=== PATIENT | female | born 1925 | race Caucasian/White ===

== ENCOUNTER 2016-04-28 15:17 | Inpatient (IN) | payer OTHER ==
[2016-04-28 16:01] LABS: MANUAL DIFF NEEDED? NO
[2016-04-28 16:05] LABS: BASO% 0.4 % (0.0-0.8); EOS# 0.17 X1000 (0.0-0.7); EOS% 3.4 % (0.0-10.0); HEMATOCRIT 32.8 % (37.0-47.0); HEMOGLOBIN 10.4 g/dL (12.0-16.0); LYMPH# 1.06 X1000 (1.2-3.4); LYMPH% 21.5 % (20.5-51.1); MCHC 31.7 g/dL (33-37); MCV 94.5 FL (81-99); MONO# 0.31 X1000 (0.11-0.59); MONO% 6.3 % (1.7-9.3); MPV 11.2 FL (7.4-10.4); NEUT% 68.4 % (42.2-75.2); PLT 139 X1000 (130-400); RBC 3.47 XMIL (4.2-5.4)
[2016-04-28 16:24] LABS: ALBUMIN 4.1 g/dL (3.5-5.0); CALCIUM 9.3 mg/dL (8.8-10.2); TOTAL BILIRUBIN 0.51 mg/dL (0.20-1.00)
[2016-04-28 17:24] LABS: URINE CULTURE NEEDED? NO; URINE MICRO REVIEW NEEDED? NO; URINE SOURCE CLEAN CATCH
[2016-04-28 17:27] LABS: BILIRUBIN URINE NEGATIVE (NEGATIVE); BLOOD URINE NEGATIVE (NEGATIVE); COLOR STRAW; GLUCOSE URINE NEGATIVE (NEGATIVE); LEUKOCYTES URINE NEGATIVE (NEGATIVE); NITRITE URINE NEGATIVE (NEGATIVE); PH URINE 7.5; PROTEIN URINE NEGATIVE (NEGATIVE); SP GRAVITY URINE 1.005; TURBIDITY URINE CLEAR (CLEAR); UROBILINOGEN URINE NORMAL (NORMAL)
[2016-04-28 17:29] LABS: UR EPITHELIAL CELLS <10 /HPF (<10); URINE BACTERIA NEGATIVE /HPF; URINE RBC <10 /HPF (<10); URINE WBC <10 /HPF (<10)
--- NOTE | 2016-04-28 17:36 | PROVIDER DOCUMENTATION ---
HPI-General Adult <Rhonda Hernandez - Last Filed: 04/28/16 18:23> <Pacheco Peterson - Last Filed: 04/28/16 18:41> - General Source: patient - History of Present Illness -Gen Adult Nature of Presenting Problems: 89 yo WF complains of several days of lower extremity weakness and pain. She is not able to walk except with walker before 'giving out.' Usually she is ambulatory. She admits to palpitations but does not volunteer that. She denies CP, orthopnea, fever. Location of Pain/Injury: reports: lower body Pain Radiation: reports: other (upper legs) Quality of Pain: reports: aching Severity: reports: mild Onset/Duration: reports: 4 days ago Timing: reports: still present, getting worse Context/Activities at Onset: reports: none Modifying Factors: improves with: nothing Associated Symptoms: reports: fatigue, muscle aches, nausea, shortness of breath , weakness. denies: constipation, cough, fever/chills, genitourinary problems Similar Symptoms Previously?: No Recently seen or treated by another doctor?: No <Jimmie Sparks - Last Filed: 05/01/16 10:31> - General Chief Complaint: Weakness Stated Complaint: WEAK/KNEE PAIN/BACK PAIN Time Seen by Provider: 04/28/16 16:30 Allergies/Adverse Reactions: Patient Allergies Allergy/AdvReac Type Severity Reaction Status Date / Time oxycodone HCl * AdvReac ANAPHYLAXIS Verified 09/13/15 14:17 [From OxyContin] Home Medications: Atorvastatin Calcium 40 mg PO HS 09/13/15 Cyanocobalamin (Vitamin B-12) [Vitamin B12] 1,000 mcg PO DAILY 09/13/15 Furosemide [Lasix] 20 mg PO DAILY 09/13/15 Lisinopril 30 mg PO DAILY 09/13/15 Meloxicam 15 mg PO DAILY 09/13/15 Omeprazole 40 mg PO DAILY 09/13/15 Sertraline [Zoloft] 100 mg PO DAILY 09/13/15 Warfarin [Coumadin] 2 mg PO DIRECTED 09/13/15 Fluticasone 50 Mcg Nasal [place] [Flonase] 2 spray SINDHU DAILY 04/28/16 Folic Acid 0.4 mg PO DAILY 04/28/16 Review of Systems - Adult - REVIEW OF SYSTEMS - ADULT Constitutional: reports: fatique Eyes: reports: no symptoms reported Ears, Nose, Mouth & Throat: reports: no symptoms reported Cardiovascular: reports: palpitations Respiratory: reports: dyspnea on exertion, shortness of breath. denies: chronic cough, wheezing Gastrointestinal: reports: no symptoms reported Genitourinary: reports: no symptoms reported Musculoskeletal: reports: no symptoms reported Psychiatric: reports: no symptoms reported <Jimmie Sparks - Last Filed: 05/01/16 10:31> Past History - Adult - PAST MEDICAL HISTORY-ADULT Review of Records: reports: Old Records Reviewed, Nursing Assessment Review, Medications Reviewed, Social history reviewed & non-contributory. Cardiovascular: reports: HTN, hyperlipidemia. denies: A-Fib Genitourinary: reports: denies history Musculoskeletal: reports: arthritis, other (chronic gout) Neurological: reports: denies history Psychiatric: reports: denies history - PRIOR SURGERIES/PROCEDURES Surgical/Procedure History: reports: joint replacement - IMMUNIZATION STATUS Childhood Immunizations: See Nurse Assessment Flu Vaccine: See Nurse Assessment - FAMILY HISTORY Family History: reviewed, not pertinent - SOCIAL HISTORY Smoking: denies Substance Use: none/never Alcohol Use Frequency: never <Jimmie Sparks - Last Filed: 05/01/16 10:31> Physical Exam-General - PHYSICAL EXAM-ADULT Initial Vital Signs Reviewed: Yes - CONSTITUTIONAL General Appearance: appears well, alert, no apparent distress, obese - EYES Eyes: PERRL/EOMI, pink conjunctivae - HEAD, EARS, NOSE, MOUTH & THROAT HENMT: normocephalic/atraumatic, moist mucous membranes - NECK Neck: non-tender, supple - RESPIRATORY Respiratory: chest non-tender, lungs clear, normal breath sounds - CARDIOVASCULAR Cardiovascular: irregularly irregular - GASTROINTESTINAL (ABDOMEN) Abdominal Exam: normal bowel sounds, non tender, soft - MUSCULOSKELETAL Back Exam: no CVA tenderness Extremity: deformity (knee joints), pedal edema - SKIN Integumentary: normal color - NEUROLOGIC Neurologic: grossly normal, no motor/sensory deficits - PSYCHIATRIC Psych/Mental Status: normal mood/affect <Jimmie Sparks - Last Filed: 05/01/16 10:31> Progress - EKG 1 Time of EKG reading by physician:: 18:23 EKG Read and Signed by:: Jimmie Sparks Rate: 75 Rhythm: sinus rhythm QRS: normal HI Interval: normal ST Wave: normal <Rhonda Hernandez - Last Filed: 04/28/16 18:23> - REASSESSMENT Reassessment #1 Time Reassessed: 18:41 (Took over care for Dr. Sparks (ER MD) who completed his shift. Pt has new onset a-fib, weakness, and profound htn. I have ordered a CT head and labetolol 20mg IV. Dr. Sparks agreed c admitting the pt for bp management and furgther evaluation of a-fib and weakness. ) - CONSULTS/PCP/HOSPITALIST Notification #1 *Consult/PCP/Hospitalist*: Dr. Rodgers (Hospitalist) Time Discussed: 18:47 Reason/Comments: Will admit pt and the machinist 2nd shift hospitalist team will see pt <Pacheco Peterson - Last Filed: 04/28/16 18:41> - PLAN OF CARE/RESULTS Progress/Plan/Lab Results: Vital Signs Temp Pulse Resp BP Pulse Ox 05/01/16 09:13 93 L 05/01/16 08:00 98.7 F 85 18 146/57 95 05/01/16 03:33 98.6 F 74 20 134/61 95 04/30/16 23:36 98.6 F 78 18 153/70 96 04/30/16 19:50 98.6 F 88 18 192/83 91 L 04/30/16 15:09 99.0 F 97 H 22 168/82 97 04/30/16 11:40 98.5 F 73 20 183/75 99 04/30/16 11:20 96 04/30/16 07:19 98.0 F 72 18 145/62 96 04/30/16 03:42 98.1 F 80 18 159/81 96 04/30/16 00:00 98.3 F 75 22 155/68 100 04/29/16 20:00 97.2 F L 66 18 180/70 100 04/29/16 15:25 97.5 F L 67 20 197/86 100 04/29/16 11:56 97.6 F 78 16 178/92 100 04/29/16 07:53 97.6 F 66 19 173/65 95 04/29/16 04:00 98.3 F 86 13 129/69 95 04/28/16 23:32 97.3 F L 79 14 180/86 95 04/28/16 20:56 66 197/87 04/28/16 20:37 98.1 F 64 17 201/91 97 04/28/16 19:50 68 19 190/100 96 04/28/16 18:51 70 17 253/118 96 04/28/16 18:32 212/110 04/28/16 18:07 76 19 224/96 96 04/28/16 15:36 98.2 F 71 18 180/106 100 oxycodone HCl * [From OxyContin] Adverse Reaction (Verified 09/13/15 14:17) ANAPHYLAXIS STATES ASYSTOLE Atorvastatin Calcium 40 mg PO HS 09/13/15 Cyanocobalamin (Vitamin B-12) [Vitamin B12] 1,000 mcg PO DAILY 09/13/15 Furosemide [Lasix] 20 mg PO DAILY 09/13/15 Lisinopril 30 mg PO DAILY 09/13/15 Meloxicam 15 mg PO DAILY 09/13/15 Omeprazole 40 mg PO DAILY 09/13/15 Sertraline [Zoloft] 100 mg PO DAILY 09/13/15 Warfarin [Coumadin] 2 mg PO DIRECTED 09/13/15 Fluticasone 50 Mcg Nasal [place] [Flonase] 2 spray SINDHU DAILY 04/28/16 Folic Acid 0.4 mg PO DAILY 04/28/16 Dietary Diet Heart Healthy Diet Start Sat Apr 28 2045 I&O 04/30/16 05/01/16 05/02/16 07:59 07:59 07:59 Intake Total 1214 1230 Output Total 0796 7284 Balance -1761 -420 Laboratory 05/01/16 05/01/16 04/30/16 05:55 05:55 04:30 WBC 4.88 4.60 L RBC 3.29 L 3.21 L Hgb 9.8 L 9.6 L Hct 30.8 L 30.1 L MCV 93.6 93.8 MCH 29.8 29.9 MCHC 31.8 L 31.9 L RDW Std Deviation 14.2 13.9 Plt Count 130 124 L MPV 11.2 H 11.7 H Immature Gran % (Auto) 0.0 0.0 Neut % (Auto) 63.9 70.6 Lymph % (Auto) 24.4 17.0 L [place] % (Auto) 8.2 8.5 Eos % (Auto) 3.3 3.7 Baso % (Auto) 0.2 0.2 Immature Gran # (Auto) 0.00 0.00 Neut # (Auto) 3.12 3.25 Lymph # (Auto) 1.19 L 0.78 L Blanco # (Auto) 0.40 0.39 Eos # (Auto) 0.16 0.17 Baso # (Auto) 0.01 0.01 Sodium 140 Potassium 4.1 Chloride 104 Carbon Dioxide 24 L Anion Gap 12 BUN 24 H Creatinine 1.4 H Estimated GFR/1.73 m2 35 BUN/Creatinine Ratio 17 Glucose 94 POC Glucose Calculated Osmolality 283 Calcium 9.4 Phosphorus 3.0 Magnesium 1.4 L Albumin 3.2 L 04/30/16 04/28/16 04:30 15:42 WBC RBC Hgb Hct MCV MCH MCHC RDW Std Deviation Plt Count MPV Immature Gran % (Auto) Neut % (Auto) Lymph % (Auto) Blanco % (Auto) Eos % (Auto) Baso % (Auto) Immature Gran # (Auto) Neut # (Auto) Lymph # (Auto) Blanco # (Auto) Eos # (Auto) Baso # (Auto) Sodium 142 Potassium 3.9 Chloride 105 Carbon Dioxide 25 Anion Gap 12 BUN 19 Creatinine 1.3 H Estimated GFR/1.73 m2 39 BUN/Creatinine Ratio 15 Glucose 95 POC Glucose 98 Calculated Osmolality 285 Calcium 9.4 Phosphorus Magnesium 1.3 L Albumin <Jimmie Sparks - Last Filed: 05/01/16 10:31> Departure <Rhonda Hernandez - Last Filed: 04/28/16 18:23> - Departure Time of Disposition Order: 18:43 Certified Medical Emergency: Emergent <Pacheco Peterson - Last Filed: 04/28/16 18:41> - Departure Time of Disposition Order: 18:00 <Jimmie Sparks - Last Filed: 05/01/16 10:31> - Departure DIAGNOSIS: Weakness Afib Qualifiers: Atrial fibrillation type: unspecified Qualified Code(s): I48.91 - Unspecified atrial fibrillation HTN (hypertension) Qualifiers: Hypertension type: essential hypertension Qualified Code(s): I10 - Essential ( primary) hypertension Disposition: ADMITTED INPATIENT 09 Condition: Stable Attestation - Physician/ Mid-level Attestation Patient care was provided by Mid-level provider (WEED INSPECTOR/PA):: Yes Mid-level provider:: Pacheco Peterson Mid-level documentation review:: The Mid-level provider documentation, treatment plan and medical decision making was reviewed by the physician who agrees with all treatment and medical decision making by the MLP. <Pacheco Peterson - Last Filed: 04/28/16 18:41> Physician Attestation
[2016-04-28] MEDS ORDERED: CATAPRES PO ONE (17:37)
[2016-04-28 18:08] LABS: INR 1.88; PROTIME 20.1 Seconds (9.2-11.7)
[2016-04-28] MEDS ORDERED: LABETALOL IV ONE (18:36)
[2016-04-28] MEDS ORDERED: LASIX IV ONE (20:52)
[2016-04-28] MEDS: NS IV SCH ×2 (20:54→21:34)
[2016-04-28] MEDS: CARDENE IV SCH ×2 (20:54→21:34)
[2016-04-28] MEDS ORDERED: COUMADIN PO SCH (21:00)
[2016-04-28] MEDS ORDERED: ZOFRAN IV PRN (21:03)
[2016-04-28 21:40] LABS: URINE CULTURE NEEDED? NO; URINE MICRO REVIEW NEEDED? NO; URINE SOURCE CLEAN CATCH
[2016-04-28] MEDS: LOVENOX SUBQ SCH (21:40)
[2016-04-28 21:43] LABS: BILIRUBIN URINE NEGATIVE (NEGATIVE); BLOOD URINE NEGATIVE (NEGATIVE); COLOR STRAW; GLUCOSE URINE NEGATIVE (NEGATIVE); LEUKOCYTES URINE NEGATIVE (NEGATIVE); NITRITE URINE NEGATIVE (NEGATIVE); PROTEIN URINE NEGATIVE (NEGATIVE); SP GRAVITY URINE 1.008; TURBIDITY URINE CLEAR (CLEAR); UROBILINOGEN URINE NORMAL (NORMAL)
[2016-04-28 21:44] LABS: UR EPITHELIAL CELLS <10 /HPF (<10); URINE BACTERIA NEGATIVE /HPF; URINE RBC <10 /HPF (<10); URINE WBC <10 /HPF (<10)
[2016-04-28] MEDS: LIPITOR PO SCH (22:34)
--- NOTE | 2016-04-28 23:18 | Diag Imaging Result Document ---
PROCEDURE NAME: HEAD W/O CONTRAST - 04/28/2016 CT HEAD WITHOUT CONTRAST: COMPARISON: None available. FINDINGS: There is diffuse brain atrophy and there is patchy low attenuation in the periventricular and subcortical white matter suggesting fairly advanced microangiopathy. 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 There is no definite acute infarct given the limited sensitivity of CT versus MRI. There is no discrete intracranial mass, mass effect, or intracranial hemorrhage. There is subtotal opacification of the left maxillary sinus with hyperostosis consistent with chronic sinusitis. Surrounding soft tissues and bony structures are essentially unremarkable, otherwise. IMPRESSION: Chronic appearing changes but no evidence of acute intracranial pathology.
[2016-04-29 05:19] LABS: MANUAL DIFF NEEDED? NO
--- NOTE | 2016-04-29 05:22 | HISTORY AND PHYSICAL ---
PRIMARY CARE PHYSICIAN: Wing Hardy MD. CHIEF COMPLAINT: Weakness. HISTORY OF PRESENT ILLNESS: This is an 89-year-old, female who comes in with her family with a complaint of lower extremity weakness. She states that she has not been able to walk without her walker for the past week without, in her own words, "giving out". She usually is ambulatory without a walker. She did also note that she had felt as though she had palpitations or a fluttering in her chest. She denied any chest pain, orthopnea, fever, nausea, vomiting, or shortness of breath. She has a past medical history of gout, hypertension, hyperlipidemia, lower leg DVT. She originally had an EKG that was completed in the ER that showed her in normal sinus rhythm. At some point during her time in the ER, she converted to atrial fibrillation. The patient states that she has never had or aware of being in atrial fibrillation in the past. CT scan of her head was completed which showed chronic atrophy but no evidence of any acute intracranial pathology. Patient also was noted to have a blood pressure of 253/ 118 while in the ER. She was given labetalol and clonidine which had little to no effect on her. During my initial assessment, she was noted to have lower extremity edema and was noted to have an elevated BNP on her laboratory data. She was given 60 mg of Lasix 1 time dose in the emergency room. The patient will be admitted to the ICU on a Cardene drip for further evaluation and treatment. PAST MEDICAL HISTORY: 1. Hypertension. 2. Hyperlipidemia. 3. Left leg DVT. 4. Gout. 5. Hard of hearing. PREVIOUS SURGICAL HISTORY: 1. Right knee surgery. 2. Partial hysterectomy. SOCIAL HISTORY: She lives alone. Is able to complete all activities of daily living normally except for this last week. Denies tobacco, alcohol, or illicit drug use or abuse. FAMILY HISTORY: Her daughter has had breast cancer. Brother had coronary artery disease and in his 40s. Father also in his 40s from acute myocardial infarction. ALLERGIES: Oxycodone. HOME MEDICATIONS: 1. Lasix 20 mg p.o. daily. 2. Omeprazole 40 mg p.o. daily. 3. Meloxicam 15 mg p.o. daily. 4. Atorvastatin 40 mg p.o. at bedtime. 5. Zoloft 100 mg p.o. daily. 6. Lisinopril 30 mg p.o. daily. 7. Vitamin B12 1000 mcg p.o. daily. 8. Coumadin 2 mg p.o. as directed. 9. Flonase 2 sprays nasally daily. 10. Folic acid 0.4 mg p.o. daily. REVIEW OF SYSTEMS: Fourteen point review of systems conducted with the patient. All negative except for listed above in the HPI. All other systems negative. PHYSICAL EXAMINATION: VITAL SIGNS: Temperature 98.1 degrees, pulse 64, respirations 17, blood pressure 201/91, oxygen saturation 97% on 2 L nasal cannula. GENERAL: A pleasant, 89-year-old female, alert and oriented x3. Answers all questions appropriately. Is noted to be hard of hearing. No acute distress. Lying on the ER stretcher. HEENT: Head is atraumatic, normocephalic. Pupils equal, round, reactive to light. Extraocular eye movement intact. Sclerae are anicteric. Conjunctivae are pink. Oral mucosa is moist. NECK: Supple. Mild JVD noted on examination. No hepatojugular reflex noted. No carotid bruit. Trachea is midline. CARDIAC: Irregularly irregular. No murmurs, gallops, rubs. LUNGS: Bibasilar crepitations noted. No rhonchi, wheezes, rales. Symmetrical rise and fall with respirations. ABDOMEN: Protuberant, soft, nondistended, nontender. Bowel sounds present in all 4 quadrants, normoactive. No pulsatile mass. No organomegaly. EXTREMITIES: There is 1 to 2+ pitting edema in bilateral lower extremities. There are 1+ pedal pulses bilaterally. GENITOURINARY: The patient voids, otherwise deferred. NEUROLOGICAL: Hard of hearing. Otherwise, no neurological deficits noted. She is alert and oriented x3. Cranial nerves 2-12 grossly intact. DIAGNOSTIC DATA: CT of the head showed chronic microvascular changes with atrophy. No acute intracranial process. LABORATORY DATA: WBC 4.93, hemoglobin 10.4, hematocrit 32.8, platelet count 139 ,000. PT 20.1, INR 1.88. Sodium 137, potassium 4, chloride 102, carbon dioxide 26, BUN 20, creatinine 1.3, glucose 92. ProBNP 1594. Urine unremarkable. ASSESSMENT: 1. New onset atrial fibrillation, rate controlled. 2. Uncontrolled hypertension. 3. Chronic kidney disease stage III. 4. Chronic gout. 5. Hyperlipidemia. PLAN: Admit patient to the ICU on a Cardene drip. Recheck laboratory data in a.m. Check CK and troponin. Check TSH level. INR daily. Continue Coumadin. Echocardiogram in a.m. Consult Dr. Wolff. Cardiology to see patient, evaluate and treat related to hypertension and new onset atrial fibrillation. Zofran 4 mg IV q.4 p.r.n. nausea. Continue Lipitor and Zoloft. Start Lovenox 40 mg subcutaneously q.24 hours while INR subtherapeutic, VT prophylaxis. Further recommendations per patient's clinical course. Dictated by SAMIRA Kearns for Miguel Jackson MD Patient seen and evaluated by I and I agree with DANICA Colin's plans. Admit to ICU for blood pressure control. Check INR in am. consult to Cardiology. ALON
[2016-04-29 05:24] LABS: BASO% 0.6 % (0.0-0.8); EOS# 0.14 X1000 (0.0-0.7); EOS% 3.9 % (0.0-10.0); HEMATOCRIT 28.3 % (37.0-47.0); HEMOGLOBIN 8.9 g/dL (12.0-16.0); LYMPH# 0.97 X1000 (1.2-3.4); MCH 29.6 PG (27-31); MCHC 31.4 g/dL (33-37); MONO# 0.32 X1000 (0.11-0.59); MONO% 8.9 % (1.7-9.3); MPV 11.4 FL (7.4-10.4); NEUT% 59.6 % (42.2-75.2); PLT 123 X1000 (130-400); RBC 3.01 XMIL (4.2-5.4)
[2016-04-29 05:35] LABS: INR 2.13; PROTIME 22.7 Seconds (9.2-11.7)
[2016-04-29 05:45] LABS: CALCIUM 9.1 mg/dL (8.8-10.2); MAGNESIUM 1.2 mg/dL (1.5-2.7); POTASSIUM 4.1 mmol/L (3.5-5.1)
[2016-04-29] MEDS: FOLIC ACID PO SCH (08:47)
[2016-04-29] MEDS: PRILOSEC PO SCH (08:47)
[2016-04-29] MEDS: VITAMIN B-12 PO SCH (08:47)
[2016-04-29] MEDS: LASIX PO SCH (08:47)
[2016-04-29] MEDS: ZOLOFT PO SCH (08:48)
--- NOTE | 2016-04-29 08:54 | Diag Imaging Result Document ---
PROCEDURE NAME: CHEST-PORTABLE - 04/29/2016 SINGLE FRONTAL RADIOGRAPH OF THE CHEST: COMPARISON: None available. FINDINGS: Inspiration is suboptimal. There are increased central lung markings suggesting pulmonary venous congestion. The patient is rotated toward the right. No definite pleural fluid collection is identified. No well-defined airspace consolidation is appreciated. The heart appears somewhat prominent. IMPRESSION: Prominent heart and suggestion of pulmonary venous congestion as described.
[2016-04-29] MEDS ORDERED: MAGNESIUM SULFATE 2 GM/S.W.I. 50 ML IV ONE (08:58)
[2016-04-29] MEDS: FLONASE NAS SCH (09:00)
[2016-04-29] MEDS ORDERED: FLUZONE QUAD 2016-2017 SYRINGE IM ONE (09:00)
[2016-04-29] MEDS: PRINIVIL PO SCH ×2 (11:20→20:09)
--- NOTE | 2016-04-29 11:28 | CONSULTATION ---
DATE OF CONSULTATION: 04/29/2016 INDICATION: Possible atrial fibrillation, hypertension. HISTORY OF PRESENT ILLNESS: Ms. Smith is an 89-year-old, white female who sees Dr. Wing Hardy. She came in for 2-3 days of extreme lower extremity weakness as well as pain. The pain is somewhat diffuse. She has a history of gout as well as osteoarthritis but this does not seem like it localizes to any specific joints. She has not had any falls recently. She reports compliance with her blood pressure medicines at home as well as followup with her primary care physician about 2-3 weeks ago. She takes her Coumadin secondary to a history of a single episode of DVT. She had a lower extremity ultrasound in August that was negative. In addition, her DVT was diagnosed more than 1 year ago. She has not had any episodes of chest pain. No orthopnea. PAST MEDICAL HISTORY: 1. Hypertension. 2. Hyperlipidemia. 3. History of left leg DVT more than 1 year ago. 4. Gout. 5. Osteoarthritis. SOCIAL HISTORY: She lives alone. She usually is able to do all of her daily activities of living except for the last 2-3 days. No alcohol, tobacco, or illicit drugs. FAMILY HISTORY: Daughters had breast cancer. She has a history of coronary disease in her siblings as well as father. REVIEW OF SYSTEMS: A 10 system review of systems is negative except for those mentioned in the HPI. PHYSICAL EXAMINATION: Vital Signs: She is afebrile. Her heart rates have been in the 60s to 80s. Most recent systolics have been in the 170s to 200s with diastolics in the 60s to 90s. Her Is and Os are -[id number]. Generally: She is in no acute distress. HEENT: Oropharynx is moist. Poor dentition. Eye examination shows pink conjunctivae, white sclerae. Neck: Examination shows no obvious thyromegaly or thyroid tenderness. Cardiovascular: She sounds to be in a regular rate and rhythm. Current telemetry shows sinus rhythm, occasional PAC. She has no lower extremity edema. She has warm and well perfused lower extremities. Chest: Examination was clear bilaterally. She has no increased work of breathing. Abdomen: Soft, nontender , nondistended. No rebound or guarding. Skin: Examination is warm and dry throughout without any rashes. Neurological: She is moving all extremities well. Cranial nerves 2 through 12 are intact. No obvious lateralizing defects. Psychiatric: She is alert, oriented, and pleasant. She has normal mood and affect. PERTINENT DATA: CT of her head shows chronic changes. No obvious evidence of acute changes. Chest x-ray shows suggestion of a prominent heart as well as pulmonary venous congestion. Her laboratory data shows a white count of 3.6, hematocrit 28.3, platelet count is 123,000. Her INR is 2.1. Her sodium is 146, potassium is 4.1, BUN 18, creatinine 1.2. Magnesium level is 1.2. Cardiac enzymes negative. Her proBNP yesterday on admission was 1594. Her EKG on presentation shows sinus rhythm with multiple PACs. Subsequent EKG today shows sinus rhythm , occasional PACs. ASSESSMENT: 1. Hypertension. 2. Premature atrial contractions. PLAN: We will stop the Coumadin given her history of DVT more than 1 year ago and no reoccurrence. She has no personal history of cancer and she has no other history of clots. In addition, she has a history of leg weakness and leg pain. I believe she is at elevated risk for falls secondary to this. We will add in her lisinopril and start it at a dose of 20 mg b.i.d. with a now dose. Echocardiogram will be checked in the morning. [facility]
[2016-04-29] MEDS: LIPITOR PO SCH (20:09)
[2016-04-29] MEDS: LOVENOX SUBQ SCH (20:09)
[2016-04-29] MEDS ORDERED: APRESOLINE IV PRN (22:18)
[2016-04-30] MEDS: NS IV SCH (01:26)
[2016-04-30] MEDS: CARDENE IV SCH (01:26)
[2016-04-30] MEDS ORDERED: RESTORIL PO ONE (02:51)
[2016-04-30 05:45] LABS: MANUAL DIFF NEEDED? NO
[2016-04-30 05:57] LABS: BASO% 0.2 % (0.0-0.8); EOS# 0.17 X1000 (0.0-0.7); EOS% 3.7 % (0.0-10.0); HEMATOCRIT 30.1 % (37.0-47.0); HEMOGLOBIN 9.6 g/dL (12.0-16.0); LYMPH# 0.78 X1000 (1.2-3.4); MCH 29.9 PG (27-31); MCHC 31.9 g/dL (33-37); MCV 93.8 FL (81-99); MONO# 0.39 X1000 (0.11-0.59); MONO% 8.5 % (1.7-9.3); MPV 11.7 FL (7.4-10.4); NEUT% 70.6 % (42.2-75.2); PLT 124 X1000 (130-400); RBC 3.21 XMIL (4.2-5.4)
--- NOTE | 2016-04-30 05:59 | EKG Report ---
Test Performed on : 04/29/2016 11:46:21 AM Test Reason : AFIB VS SR Blood Pressure : / mmHG Vent. Rate : 069 BPM Atrial Rate : 069 BPM P-R Int : 176 ms QRS Dur : 090 ms QT Int : 424 ms P-R-T Axes : 039 030 089 degrees QTc Int : 454 ms Sinus rhythm. with premature atrial complexes. with sinus arrhythmia. Nonspecific T wave abnormality Abnormal ECG When compared with ECG of 28-APR-2016 15:47, (Unconfirmed) Nonspecific ST and T wave abnormality V3 Confirmed by Lance Becerra DO ([id number]) on 05/01/2016 8:12:18 AM
[2016-04-30 06:14] LABS: CALCIUM 9.4 mg/dL (8.8-10.2); MAGNESIUM 1.3 mg/dL (1.5-2.7); POTASSIUM 3.9 mmol/L (3.5-5.1)
[2016-04-30] MEDS ORDERED: MAGNESIUM SULFATE 2 GM/S.W.I. 50 ML IV ONE (07:10)
[2016-04-30] MEDS: ZOLOFT PO SCH (08:28)
[2016-04-30] MEDS: LASIX PO SCH (08:28)
[2016-04-30] MEDS: PRINIVIL PO SCH ×2 (08:28→21:28)
[2016-04-30] MEDS: VITAMIN B-12 PO SCH (08:29)
[2016-04-30] MEDS: FOLIC ACID PO SCH (08:29)
[2016-04-30] MEDS: PRILOSEC PO SCH (08:29)
[2016-04-30] MEDS: FLONASE NAS SCH (08:31)
[2016-04-30] MEDS: NORVASC PO SCH ×2 (13:53→21:28)
--- NOTE | 2016-04-30 14:15 | PROGRESS NOTE ---
DATE: 04/30/2016 SUBJECTIVE: Ms. Smith has been doing well. She has no complaints overnight except for some mild leg pain. PHYSICAL: Vital signs: She is afebrile. Heart rates seem to be in the 60s to 80s. Most recent blood pressure is 183/75. General: She is in no acute distress. She is pleasant. Cardiovascular: She is in regular rate and rhythm. She has no obvious murmurs. She has no S3. She has no lower extremity edema. Chest: Clear bilaterally. She has no increased work of breathing. Abdomen: Soft, nontender, nondistended. She has no obvious organomegaly. Skin Exam: Warm and dry throughout. PERTINENT DATA: White count 4.6, hematocrit 30, platelet count is 124,000. Sodium 142, potassium 3.9, BUN is 19, creatinine 1.3. ASSESSMENT: Hypertension. PLAN: I will stop the Cardene drip, place her on amlodipine 5 mg b.i.d. At this point, I have no further recommendations from a cardiovascular standpoint. Her echocardiogram is pending today. We will follow up on the echocardiogram and if that looks okay we will likely sign off. Please call us with further questions.
--- NOTE | 2016-04-30 16:03 | ECHO REPORT ---
ORDER DATE: 04/30/2016 ECHOCARDIOGRAPHIC MEASUREMENTS: 1. Interventricular septum 1.1. 2. Left ventricle posterior wall 1.1. 3. Diastolic diameter 4. 4. Left atrium 3. 5. Aorta 2.7. SUMMARY OF 2-DIMENSIONAL IMAGIN. Next normal left ventricular cavity size. Estimated ejection fraction of 60%. 2. Aortic valve leaflets are trileaflet, mildly sclerosed. Mitral valve is normal. There is mitral annular calcification. There is left atrial enlargement. 3. Normal left ventricular cavity size. Estimated ejection fraction of 65%. 4. Doppler studies revealed there is no aortic stenosis or regurgitation. There is trace to mild mitral regurgitation. Trace tricuspid regurgitation. Peak velocity across the tricuspid valve less than 2 m/sec. 5. There is no pericardial effusion or obvious intracardiac mass or thrombi.
--- NOTE | 2016-04-30 19:47 | PROGRESS NOTE ---
DATE: 04/30/2016 SUBJECTIVE: The patient states that she is feeling better. She states that she did not sleep well last night. OBJECTIVE: Vital Signs: Temperature 99 degrees, blood pressure 168/82, heart rate 97, respirations 22, O2 saturations 97% on 2 L nasal cannula. General: This is a chronically ill- appearing elderly female, lying comfortably in bed, in no acute distress. Head: Normocephalic. Atraumatic. Heart: S1, S2. Normal. Regular rate and rhythm. Lungs: Clear to auscultation bilaterally. No wheezes, no rales. No rhonchi. Abdomen: Positive bowel sounds. Soft, nontender, nondistended. Extremities: No edema. No cyanosis. No calf tenderness. Neurologic: The patient is awake and alert. LABORATORY: White blood cell count 4.6, hemoglobin 9.6, hematocrit 30, platelets 124,000 .sodium 142, potassium 3.9, chloride 105, CO2 25, BUN 19. Creatinine 1.3, glucose 95, magnesium 1.3. ASSESSMENT AND PLAN: 1. Accelerated hypertension. Cardiology is following and currently titrating the patient's antihypertensives. We will continue to monitor the patient's blood pressure closely. She has been weaned off of the Cardene drip. 2. Premature atrial contractions. Aware. 3. Gastroesophageal reflux disease. 4. Dyslipidemia. Continue on Lipitor. 5. Situational depression. Continue on Zoloft. 6. History of deep vein thrombosis. The patient had a deep venous thrombosis over a year ago and her Coumadin has been discontinued by the custody officer. 7. Anemia. The patient's hemoglobin and hematocrit is stable. 8. Hypomagnesemia. We will replace the patient's magnesium. 9. Stage 3 chronic kidney disease. Stable. 10. Deep vein thrombosis prophylaxis. Continue on Lovenox. The patient's platelet count is slightly decreased today. We will continue to monitor this closely. 11. PT consult. AMISHA to chair. [facility]al[facility]
[2016-04-30] MEDS: LIPITOR PO SCH (21:28)
[2016-04-30] MEDS: LOVENOX SUBQ SCH (21:29)
[2016-05-01 06:13] LABS: MANUAL DIFF NEEDED? NO
[2016-05-01 06:16] LABS: BASO% 0.2 % (0.0-0.8); EOS# 0.16 X1000 (0.0-0.7); EOS% 3.3 % (0.0-10.0); HEMATOCRIT 30.8 % (37.0-47.0); HEMOGLOBIN 9.8 g/dL (12.0-16.0); LYMPH# 1.19 X1000 (1.2-3.4); LYMPH% 24.4 % (20.5-51.1); MCH 29.8 PG (27-31); MCHC 31.8 g/dL (33-37); MCV 93.6 FL (81-99); MONO% 8.2 % (1.7-9.3); MPV 11.2 FL (7.4-10.4); NEUT% 63.9 % (42.2-75.2); PLT 130 X1000 (130-400); RBC 3.29 XMIL (4.2-5.4)
[2016-05-01 06:34] LABS: ALBUMIN 3.2 g/dL (3.5-5.0); CALCIUM 9.4 mg/dL (8.8-10.2); MAGNESIUM 1.4 mg/dL (1.5-2.7); POTASSIUM 4.1 mmol/L (3.5-5.1)
[2016-05-01] MEDS: FLONASE NAS SCH (09:28)
[2016-05-01] MEDS: LASIX PO SCH (09:28)
[2016-05-01] MEDS: PRILOSEC PO SCH (09:28)
[2016-05-01] MEDS: ZOLOFT PO SCH (09:28)
[2016-05-01] MEDS: NORVASC PO SCH ×2 (09:28→21:15)
[2016-05-01] MEDS: PRINIVIL PO SCH ×2 (09:28→21:15)
[2016-05-01] MEDS: FOLIC ACID PO SCH (09:28)
[2016-05-01] MEDS: VITAMIN B-12 PO SCH (09:28)
--- NOTE | 2016-05-01 16:51 | PROGRESS NOTE ---
DATE: 05/01/2016 SUBJECTIVE: Today, Ms. Smith referred to be doing a whole lot better. Shortness of breath has improved. She denies any chest pain. OBJECTIVE: Vital signs: Blood pressure is 134/61, pulse of 74, respirations 18, temperature is 98.7. General: Ms. Smith is an 89-year-old, female. She is in bed and does not seem to be in any distress. HEENT: Mucosa is pink and moist. Anicteric. Acyanotic. Neck: Supple. Chest: Good air entry bilateral. A few bibasilar crepitations. Cardiovascular: Regular rate with occasional extra systoles. Abdomen: Soft, nontender. Bowel sounds are present. Extremities: No pedal edema. 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 The patient is able to follow basic commands. LABORATORY DATA: WBC is 4.88, hemoglobin is 9.8, platelet count 130. Chemistry: Sodium is 140, potassium is 4.1, chloride is 104, bicarb is 24, creatinine is 1.4. ASSESSMENT: 1. Acute diastolic heart failure. 2. Severe uncontrolled hypertension on presentation. 3. Premature atrial contractions. 4. Gastroesophageal reflux disease. 5. Dyslipidemia. 6. Anemia of chronic disease. 7. Chronic kidney disease, stage 3A. 8. Generalized weakness likely due to congestive heart failure. PLAN: We are going to continue with the current therapy. We will consult the medical social worker for help to start planning for the placement.
[2016-05-01] MEDS: LOVENOX SUBQ SCH (21:15)
[2016-05-01] MEDS: LIPITOR PO SCH (21:15)
[2016-05-02 05:50] LABS: MANUAL DIFF NEEDED? NO
[2016-05-02 06:06] LABS: BASO% 0.2 % (0.0-0.8); HEMATOCRIT 33.1 % (37.0-47.0); HEMOGLOBIN 10.5 g/dL (12.0-16.0); LYMPH# 1.11 X1000 (1.2-3.4); MCH 29.7 PG (27-31); MCHC 31.7 g/dL (33-37); MCV 93.8 FL (81-99); MONO# 0.48 X1000 (0.11-0.59); MONO% 9.5 % (1.7-9.3); MPV 11.7 FL (7.4-10.4); NEUT% 64.3 % (42.2-75.2); PLT 147 X1000 (130-400); RBC 3.53 XMIL (4.2-5.4)
[2016-05-02 06:39] LABS: CALCIUM 9.9 mg/dL (8.8-10.2); POTASSIUM 4.4 mmol/L (3.5-5.1)
[2016-05-02] MEDS: LASIX PO SCH (08:17)
[2016-05-02] MEDS: ZOLOFT PO SCH (08:17)
[2016-05-02] MEDS: FOLIC ACID PO SCH (08:17)
[2016-05-02] MEDS: PRILOSEC PO SCH (08:17)
[2016-05-02] MEDS: PRINIVIL PO SCH (08:17)
[2016-05-02] MEDS: VITAMIN B-12 PO SCH (08:17)
[2016-05-02] MEDS: FLONASE NAS SCH (08:17)
[2016-05-02] MEDS: NORVASC PO SCH ×2 (08:18→21:47)
[2016-05-02 12:20] LABS: UR CREAT RANDOM 58.1 mg/dL (11-20)
[2016-05-02] MEDS: NS 1,000 ML IV SCH (15:37)
--- NOTE | 2016-05-02 15:57 | PROGRESS NOTE ---
DATE: 05/02/2016 SUBJECTIVE: Today Ms. Smith referred to be doing a whole lot better. Shortness of breath has improved. OBJECTIVE: Vital signs: Blood pressure is 149/64, pulse of 84, respiration is 18, temperature is 98.4 degrees. General: Ms. Smith is an 89-year-old female. She is in bed, and does not seem to be in any distress. HEENT: Mucosa is pink and moist. Anicteric. Acyanotic. Neck: Supple. Chest: Air entry is bilaterally reduced. There are a few bibasilar crepitations. Cardiovascular: Regular rate and rhythm. There are a few extra systolic beats but no murmur. Abdomen: Soft, nontender. Bowel sounds are present. Extremities: No pedal edema. INSTRUCTIONAL CONSULTANT: Patient is alert, oriented x2. Patient follows commands. LABORATORY DATA: WBC is 5.05, hemoglobin is 10.5, platelet count of 147,000. Chemistry reviewed, all unremarkable except for creatinine which is 1.6. The urinalysis, the FE BUN is 40%, which is more than 35%, consistent with possibly an intrarenal pathology. The urinalysis itself, did not see any urine eosinophils, or any cast. ASSESSMENT: 1. Acute diastolic heart failure. 2. Severe uncontrolled hypertension on presentation (hypertensive emergency). 3. Premature atrial contractions. 4. 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 5. Anemia of chronic disease. 6. Chronic kidney disease 3A which has worsened slightly. I discussed the case with Dr. Meneses. He thinks it is probably due to hypertensive disease on the kidney and the fact that the blood pressure has now normalized is the cause of the creatinine little bump. We will hydrate the patient with gentle hydration. We have discontinued the lisinopril and also discontinued the Lasix and we will hydrate her minimally and repeat her labs for tomorrow morning. 7. Generalized weakness on presentation, likely due to multiple medical disease. Patient will need some form of rehab. So far, the 7th grade social studies teacher has faxed documents to [facility] and , and we are waiting on bed space for patient to be discharged. [facility]
[2016-05-02] MEDS: BIDIL PO SCH (17:03)
[2016-05-02] MEDS: LIPITOR PO SCH (21:47)
[2016-05-02] MEDS: LOVENOX SUBQ SCH (21:47)
[2016-05-03] MEDS: NS 1,000 ML IV SCH (04:48)
[2016-05-03 06:37] LABS: CALCIUM 9.5 mg/dL (8.8-10.2); POTASSIUM 3.8 mmol/L (3.5-5.1)
--- NOTE | 2016-05-03 07:44 | Diag Imaging Result Document ---
PROCEDURE NAME: CHEST-PORTABLE - 05/03/2016 AP PORTABLE CHEST: TIME: 0545 hours. FINDINGS: The appearance of the chest has not changed appreciably since the previous study of 04/29/2016. IMPRESSION: Stable chest.
[2016-05-03] MEDS: ZOLOFT PO SCH (09:30)
[2016-05-03] MEDS: VITAMIN B-12 PO SCH (09:30)
[2016-05-03] MEDS: PRILOSEC PO SCH (09:30)
[2016-05-03] MEDS: BIDIL PO SCH ×2 (09:30→13:22)
[2016-05-03] MEDS: FOLIC ACID PO SCH (09:30)
[2016-05-03] MEDS: FLONASE NAS SCH (09:30)
[2016-05-03] MEDS: NORVASC PO SCH (09:30)
--- NOTE | 2016-05-03 12:00 | DISCHARGE SUMMARY ---
ADMISSION DATE: 04/28/2016 DISCHARGE DATE: 05/03/2016 CONSULTATIONS: Dr. Silas Becerra PERTINENT PROCEDURES: 1. A head CT showed chronic appearing changes, but no evidence of acute intracranial pathology. 2. Echocardiogram showed an EF of 65%. 3. Followup chest x-ray shows stable chest. DISCHARGE DIAGNOSES: 1. Acute diastolic heart failure, stable. 2. Severe uncontrolled hypertension, on presentation hypertensive emergency, improved. 3. Premature atrial contractions, stable. 4. Mild concentric hypertrophy cardiomyopathy, likely secondary to hypertensive heart disease. 5. Anemia of chronic disease. 6. Chronic kidney disease 3A, which had slightly worsened, now improved. 7. Generalized weakness on presentation secondary to multiple medical diseases. The patient will be going to [facility] in [place]. HISTORY AND HOSPITAL COURSE: Ms. Smith is an 89-year-old female who came in with her family with a complaint of lower extremity weakness. She states that she has not been able to walk without her walker for the past 1 week. She was just "giving out." She is usually ambulatory without a walker. She did note that she felt as though she was having palpitations and fluttering in her chest, but no chest pain. The EKG that was completed in the ED showed normal sinus rhythm. At some point in the ER, she converted to atrial fibrillation. She is unaware of any past history of atrial fibrillation. CT scan of the head was completed that showed chronic atrophy, but no evidence of acute intracranial pathology. Her blood pressure was noted to be 253/119. While in the ER, she was given labetalol and clonidine, which had little to no effect on her blood pressure. The patient was noted to have lower extremity edema, but did not have an elevated proBNP. She was given 60 of Lasix in the ED. The patient was admitted to the ICU on a Cardene drip. Also, she carries a past medical history of hypertension, hyperlipidemia, left leg DVT, on Coumadin, gout, and hard of hearing. She also had a Cardiology consult. They did stop her Coumadin given that her history of DVT was more than 1 year ago and no recurrence, and given the weakness and her leg pain, they believe that she was at elevated risk for falls secondary to this. Lisinopril was added to her regimen. Echocardiogram showed an EF of 65%. Per Cardiology, her EKG on presentation shows sinus rhythm with multiple PACs, as well as subsequent EKGs showed sinus rhythm with occasional PVCs. The patient's Cardene drip was also stopped. She was placed on amlodipine b.i.d. The patient has tolerated these medication changes. Social work was consulted for rehab placement. The patient will have a bed today at [facility] in [place]. DISCHARGE VITAL SIGNS: Her vital signs at the time of discharge: Temperature is 98.2 degrees, heart rate 81, respirations 18, blood pressure is 131/58, and O2 is 94% on room air. DISCHARGE DIET: Healthy heart. DISCHARGE MEDICATIONS: Please see MAR as per Dr. Adam. FOLLOWUP/DISCHARGE INSTRUCTIONS: The patient will be discharged to [facility] in [place]. She can follow up with Dr. Silas Becerra in 1 month, and she can follow up with her primary care physician, Dr. Wing Hardy, after rehab. The patient can return to the ED for any worsening of symptoms. Dictated by SAMIRA Walls for Arsalan Adam MD
[2016-05-03 12:16] VITALS: BP 129/63
== END 2016-05-03 16:44 | DRG 291 ==
LOC: ED 15:17 → ICU 21:00 → 4N 04-30 17:04
PROVIDERS: ATTEND Internal Medicine
DX: I13.0 Hypertensive heart and chronic kidney disease with heart failure and stage 1 through stage 4 chronic kidney disease, or unspecified chronic kidney disease (principal); I50.31 Acute diastolic (congestive) heart failure; I48.91 Unspecified atrial fibrillation; N18.3 Chronic kidney disease, stage 3 (moderate); E83.42 Hypomagnesemia; I16.1 Hypertensive emergency; M1A.9XX0 Chronic gout, unspecified, without tophus (tophi); E78.5 Hyperlipidemia, unspecified; M19.90 Unspecified osteoarthritis, unspecified site; I49.1 Atrial premature depolarization; K21.9 Gastro-esophageal reflux disease without esophagitis; F43.21 Adjustment disorder with depressed mood; D63.8 Anemia in other chronic diseases classified elsewhere; I42.2 Other hypertrophic cardiomyopathy; Z86.718 Personal history of other venous thrombosis and embolism; Z80.3 Family history of malignant neoplasm of breast; Z82.49 Family history of ischemic heart disease and other diseases of the circulatory system; Z79.01 Long term (current) use of anticoagulants; Z79.1 Long term (current) use of non-steroidal anti-inflammatories (NSAID); Z79.51 Long term (current) use of inhaled steroids; Z79.899 Other long term (current) drug therapy; Z91.81 History of falling; Z23 Encounter for immunization
CPT/HCPCS: 51702; 70450; 71010; 80048; 80053; 80069; 81001; 82550; 82570; 82607; 82746; 82948; 83735; 83880; 84300; 84443; 84484; 84540; 85025; 85610; 87205; 93005; 93010; 93306; 94761; 96365; 96372; 96375; J0360; J1650; J3475; J7030; Q2038; 97110-GP; 97116-GP; 97530-GP